=== PATIENT | female | born 1940 | race Caucasian/White ===

== ENCOUNTER 2019-01-03 15:40 | Outpatient (REF) | payer MEDICARE, SELFPAY ==
[2019-01-03 23:18] LABS: BUN 18 mg/dL (7-18); CREATININE 0.67 mg/dL (0.55-1.02); Calcium 9.2 mg/dL (8.5-10.1); Chloride 105 mmol/L (98-107); Glucose 94 mg/dL (74-106); Potassium 3.8 mmol/L (3.5-5.1); Sodium 144 mmol/L (136-145); TSH (W/Ref FT4) 1.35 uIU/mL (0.36-3.74); Vitamin B12 533 pg/mL (193-986)
[2019-01-04 04:42] LABS: Vitamin D 25 Total 38.1 ng/ml (30-100)
== END 2019-01-03 16:00 ==
LOC: NCHCN 15:40
PROVIDERS: PCP Registered Nurse; Visit Provider Family Medicine
DX: E55.9 Vitamin D deficiency, unspecified (principal); F32.9 Major depressive disorder, single episode, unspecified; F41.1 Generalized anxiety disorder
CPT/HCPCS: 80048; 82306; 82607; 84443

== ENCOUNTER 2019-11-12 15:44 | Outpatient (REF) | payer MEDICARE, SELFPAY ==
[2019-11-15 23:36] LABS: SARS-CoV-2 RNA Undetected (Undetected); SARS-CoV-2 Specimen Source Nasopharynx
== END 2019-11-12 16:04 ==
LOC: NCHCN 15:44
PROVIDERS: PCP Registered Nurse; Visit Provider Family Medicine
DX: Z20.828 Contact with and (suspected) exposure to other viral communicable diseases (principal)
CPT/HCPCS: U0003

== ENCOUNTER 2019-11-20 21:46 | Outpatient (REF) | payer MEDICARE, SELFPAY ==
[2019-11-20 21:59] LABS: TSH (W/Ref FT4) 1.22 uIU/mL (0.36-3.74)
== END 2019-11-20 22:06 ==
LOC: NCHCN 21:46
PROVIDERS: PCP Registered Nurse; Visit Provider Family Medicine
DX: R13.19 Other dysphagia (principal)
CPT/HCPCS: 84443

== ENCOUNTER 2020-01-23 13:36 | Outpatient (REF) | payer MEDICARE, SELFPAY ==
[2020-01-26 10:03] LABS: COVID-19 RT-PCR Result NEGATIVE (Negative)
== END 2020-01-23 13:56 ==
LOC: NCHCN 13:36
PROVIDERS: PCP Registered Nurse; Visit Provider Family Medicine
DX: Z20.828 Contact with and (suspected) exposure to other viral communicable diseases (principal)
CPT/HCPCS: U0003

== ENCOUNTER 2021-10-06 15:29 | Outpatient (REF) | payer MEDICARE, MEDICAID, SELFPAY | END 2021-10-06 15:30 | disposition home or self-care (01) | LOC: NCHCN 15:29 | PROVIDERS: PCP Registered Nurse; Visit Provider Nurse Practitioner Family | DX: L03.116 Cellulitis of left lower limb (principal) | CPT/HCPCS: 87077; 87070; 87186; 87205 ==

== ENCOUNTER 2021-11-10 17:44 | Outpatient (REF) | payer MEDICARE, MEDICAID, SELFPAY | END 2021-11-10 17:45 | disposition home or self-care (01) | LOC: NCHCN 17:44 | PROVIDERS: PCP Registered Nurse; Visit Provider Family Medicine | DX: R30.0 Dysuria (principal) | CPT/HCPCS: 87077; 87086; 87186 ==

== ENCOUNTER 2022-10-05 14:19 | Outpatient (REF) | payer MEDICARE, MEDICAID, SELFPAY ==
[2022-10-05 21:06] LABS: HCT 40.8 % (36.0-46.0); HGB 13.1 g/dL (11.2-15.7); MCH 29.8 pg (27.0-33.0); MCHC 32.1 % (32.0-36.0); MCV 93 fL (80-95); MPV 10.3 fL (8.0-11.0); Platelet Count 258 10^3/uL (130-400); RDW-SD 44.4 fL; WBC 5.63 10^3/uL (4.4-10.8)
[2022-10-05 21:40] LABS: ALT 30 U/L (14-59); AST 24 U/L (15-37); Albumin 3.8 g/dL (3.4-5.0); Alkaline Phosphatase 74 U/L (46-116); Anion Gap 5.6 mmol/L (3-11); BUN 18 mg/dL (7-18); Bilirubin, Total 0.4 mg/dL (0.2-1.0); CO2 30.4 mmol/L (21.0-32.0); CREATININE 0.6 mg/dL (0.55-1.02); Calcium 9.3 mg/dL (8.5-10.1); Chloride 102 mmol/L (98-107); Estimated GFR 90.68 (mL/min/1.73m2); Glucose 86 mg/dL (74-106); Potassium 4.1 mmol/L (3.5-5.1); Sodium 138 mmol/L (136-145); TSH (W/Ref FT4) 1.66 uIU/mL (0.36-3.74); Total Protein 7.2 g/dL (6.4-8.2); Vitamin B12 610 pg/mL (193-986)
[2022-10-05 21:48] LABS: Vitamin D 25 Total 45.2 ng/mL (30-100)
== END 2022-10-05 14:20 | disposition home or self-care (01) ==
LOC: NCHCN 14:19
PROVIDERS: PCP Registered Nurse; Visit Provider Family Medicine
DX: R53.83 Other fatigue (principal)
CPT/HCPCS: 80053; 82306; 85027; 82607; 84443

== ENCOUNTER 2023-07-22 13:53 | Outpatient (REF) | payer MEDICARE, MEDICAID, SELFPAY ==
[2023-07-22 14:49] LABS: ALT 38 U/L (14-59); AST 30 U/L (15-37); Alkaline Phosphatase 75 U/L (46-116); BUN 22 mg/dL (7-18); Bilirubin, Total 0.5 mg/dL (0.2-1.0); CREATININE 0.7 mg/dL (0.55-1.02); Calcium 9.4 mg/dL (8.5-10.1); Calculated LDL 132 mg/dL (<100); Chloride 105 mmol/L (98-107); Cholesterol 233 mg/dL (<200); Estimated GFR 86.83 (mL/min/1.73m2); Glucose 104 mg/dL (74-106); HDL Cholesterol 94 mg/dL (40-60); Potassium 3.9 mmol/L (3.5-5.1); Sodium 143 mmol/L (136-145); Total Protein 7.6 g/dL (6.4-8.2); Triglyceride 37 mg/dL (<150)
== END 2023-07-22 13:54 | disposition home or self-care (01) ==
LOC: NCHCN 13:53
PROVIDERS: PCP Registered Nurse; Visit Provider Family Medicine
DX: E78.5 Hyperlipidemia, unspecified (principal)
CPT/HCPCS: 80053; 80061

== ENCOUNTER 2024-04-19 19:08 | Outpatient (REF) | payer MEDICARE, SELFPAY ==
[2024-04-19 21:05] LABS: Abs Immature Grans 0.01 10^3/uL (0.0-0.06); Absolute Basophil Count 0.05 10^3/uL (0.0-0.2); Absolute Eosinophil Count 0.21 10^3/uL (0.0-0.7); Absolute Lymphocyte Count 1.96 10^3/uL (1.2-3.4); Absolute Monocyte Count 0.57 10^3/uL (0.1-0.8); Absolute Neutrophil Count 1.84 10^3/uL (1.2-6.7); Basophils % 1.1 %; Eosinophils % 4.5 %; HCT 39.2 % (36.0-46.0); HGB 12.9 g/dL (11.2-15.7); Immature Grans % 0.2 %; Lymphocytes % 42.2 %; MCH 30.7 pg (27.0-33.0); MCHC 32.9 % (32.0-36.0); MCV 93 fL (80-95); MPV 10.5 fL (8.0-11.0); Monocytes % 12.3 %; Neutrophils % 39.7 %; Platelet Count 268 10^3/uL (130-400); RDW 13.1 % (11.7-14.6); RDW-SD 45.1 fL; WBC 4.64 10^3/uL (4.4-10.8)
[2024-04-19 21:07] LABS: ESR 12 mm/hr (0-30)
[2024-04-19 21:31] LABS: ALT 32 U/L (14-59); AST 23 U/L (15-37); Albumin 3.7 g/dL (3.4-5.0); Alkaline Phosphatase 94 U/L (46-116); Anion Gap 4.9 mmol/L (3-11); BUN 21 mg/dL (7-18); Bilirubin, Total 0.2 mg/dL (0.2-1.0); CO2 31.1 mmol/L (21.0-32.0); CREATININE 0.6 mg/dL (0.55-1.02); Calcium 9.3 mg/dL (8.5-10.1); Chloride 107 mmol/L (98-107); Estimated GFR 89.56 (mL/min/1.73m2); Glucose 96 mg/dL (74-106); Potassium 3.9 mmol/L (3.5-5.1); Sodium 143 mmol/L (136-145); Total Protein 7.4 g/dL (6.4-8.2)
[2024-04-19 21:37] LABS: Folate > 20.0 ng/mL (8.6-20.0)
[2024-04-20 17:45] LABS: CRP, High Sensitivity 0.56 mg/L (See Note)
[2024-04-23 13:46] LABS: Ro60 Ab, IgG <7.0 CU (<20.0); SS-A/Ro, IgG <2.3 CU (<20.0); SS-B (La) Ab, IgG <3.3 CU (<20.0)
== END 2024-04-19 19:09 | disposition home or self-care (01) ==
LOC: NCHCN 19:08
PROVIDERS: PCP Registered Nurse; Visit Provider Family Medicine
DX: H04.123 Dry eye syndrome of bilateral lacrimal glands (principal); K13.0 Diseases of lips
CPT/HCPCS: 80053; 85652; 86141; 82746; 85025; 86235